=== PATIENT | male | born 1935 | race Caucasian/White ===

== ENCOUNTER 2017-01-12 22:10 | Inpatient (IN) | payer MEDICARE ==
[2017-01-12] VITALS (28 sets, daily range): O2SAT 92–97
[~2017-01-12] VITALS: Ht 185.4 cm; Wt 134.7 kg
[2017-01-13] VITALS (1164 sets, daily range): BP systolic 88–133; BP diastolic 42–59; PULSE 70–96; TEMP 97.2–98.7; O2SAT 58–100
[2017-01-13 00:41] LABS: ARTERIAL BLD GAS O2 SATURATION 93.3 % (92-100); ARTERIAL BLD GAS TCO2 CT 25.5; ARTERIAL BLOOD GAS BASE EXCESS -0.5 (-2-2); ARTERIAL BLOOD GAS HCO3 24.3 meq/L (22-26); ARTERIAL BLOOD GAS PO2 69.8 mmHg (80-100); ARTERIAL BLOOD GAS PO2T 69.8 (80-100); OXYHEMOGLOBIN 92.7 %
[2017-01-13 00:41] LABS: VENOUS BLOOD GAS BE -0.8 (-4-4); VENOUS BLOOD GAS SAO2 60.6 % (60-80)
[2017-01-13 00:42] LABS: ALLEN TEST NO; ATS? YES
[2017-01-13 00:43] LABS: VENOUS BLOOD GAS SITE VENIPUNCTURE
[2017-01-13 01:24] LABS: BASO # 0.1 (0.0-0.2); BASO % 0.3 % (0.0-2.0); EOS % 0.2 % (0-4.0); GRAN # 14.2 (1.4-6.5); GRAN % 79.1 % (42.2-75.2); LYMPH # 2.2 (1.2-3.4); LYMPH % 12.2 % (20.0-51.0); MEAN CELL VOLUME 101 fl (80.0-100.0); MEAN CORPUSCULAR HGB CONC 34 g/dl (33.0-37.0); MONO # 1.2 (0.1-0.6); MONO % 6.5 % (1.7-9.3); PLATELET COUNT 225 K/mm3 (130-400); RED BLOOD COUNT 2.66 M/mm3 (4.20-5.60); WHITE BLOOD COUNT 17.9 K/mm3 (4.8-10.8)
[2017-01-13 01:25] LABS: HEMATOCRIT 26.8 % (42.0-52.0); MEAN CORPUSCULAR HEMOGLOBIN 34 pg (27.0-31.0)
[2017-01-13 01:28] LABS: INR 1.3 (0.8-3.0); PROTHROMBIN TIME 14.6 SECONDS (9.7-12.8)
[2017-01-13 01:33] LABS: ADJUSTED CALCIUM 8.8 mg/dL (8.4-10.2); ALANINE AMINOTRANSFERASE 33 U/L (21-72); ALBUMIN 2.6 gm/dL (3.5-5.0); ALKALINE PHOSPHATASE 129 U/L (50-136); ANION GAP 5 mmol/L (7-16); BILIRUBIN,TOTAL 0.4 mg/dL (0.0-1.0); BLOOD UREA NITROGEN 46 mg/dL (9-20); CALCIUM 7.7 mg/dL (8.4-10.2); CARBON DIOXIDE 24 mmol/L (22-30); CHLORIDE 100 mmol/L (98-107); CREATININE, serum 1.96 mg/dL (0.66-1.25); GLUCOSE 253 mg/dL (74-106); SODIUM 129 mmol/L (137-145); TOTAL PROTEIN 4.7 gm/dL (6.4-8.2)
[2017-01-13 01:36] LABS: POTASSIUM 5.9 mmol/L (3.4-5.0); SALICYLATE < 1.0 mg/dL
[2017-01-13 01:45] LABS: TROPONIN-I < 0.012 ng/mL (0.000-0.034)
[2017-01-13 03:43] LABS: AMORPHOUS CRYSTAL Present /uL; MUCOUS Present /lpf; PH 5 (5-8); SQUAMOUS EPITHELIAL 0-2 /hpf; URINE APPEARANCE Turbid; URINE BACTERIA None Seen /hpf; URINE BILIRUBIN Negative (NEGATIVE); URINE BLOOD 3+ (NEGATIVE); URINE COLOR Amber; URINE GLUCOSE 1+ (NEGATIVE); URINE KETONE Trace (NEGATIVE); URINE LEUKOCYTE ESTERASE Negative (NEGATIVE); URINE PROTEIN(semi-quant) 2+ (NEGATIVE); URINE RBC >50 /hpf; URINE UROBILINOGEN Negative (NEGATIVE)
[2017-01-13 03:45] LABS: COLLECTION METHOD CATHETER
[2017-01-13] MEDS ORDERED: PRINIVIL20 MG PO (04:32)
[2017-01-13] MEDS ORDERED: PLAVIX 75MG TAB75 MG PO (04:33)
[2017-01-13] MEDS ORDERED: GLUCOPHAGE500 MG/TAB PO (04:34)
[2017-01-13] MEDS ORDERED: ZOCOR 20MG20 MG PO (04:38)
[2017-01-13] MEDS ORDERED: LOPRESSOR 550 MG/TAB PO (04:39)
[2017-01-13] MEDS ORDERED: ZEBETA 5MG5 MG PO (04:40)
[2017-01-13] MEDS ORDERED: NORCO 325 MG-51 TAB PO (04:43)
[2017-01-13] MEDS ORDERED: JANUVIA 100MG100 MG PO (04:44)
[2017-01-13] MEDS ORDERED: ZYLOPRIM 100MG100 MG PO (04:46)
[2017-01-13] MEDS ORDERED: FLOMAX 0.40.4 MG/CAP PO (04:47)
[2017-01-13] MEDS ORDERED: PROTONIX20 MG PO (04:48)
[2017-01-13] MEDS ORDERED: GLUCOTROL XL10 MG PO (04:49)
[2017-01-13] MEDS ORDERED: MULTI VITAMINS1 TAB PO (04:53)
[2017-01-13] MEDS ORDERED: ROXICODONE 55 MG/TAB (04:54)
[2017-01-13] MEDS ORDERED: ASPIRIN E.C. 8181 MG PO (04:56)
[2017-01-13] MEDS ORDERED: OMEGA-3 1000 MG1 CAP PO (04:57)
[2017-01-13] MEDS ORDERED: GLUCOSAMINE & C1 TAB PO (04:58)
[2017-01-13 05:22] LABS: VENOUS BLOOD GAS BE 0.8 (-4-4); VENOUS BLOOD GAS SAO2 56.4 % (60-80); VENOUS BLOOD GAS SITE VENIPUNCTURE
[2017-01-13 18:56] LABS: CALCIUM 6.9 mg/dL (8.4-10.2); CREATININE, serum 1.84 mg/dL (0.66-1.25); POTASSIUM 5.7 mmol/L (3.4-5.0)
[2017-01-14] VITALS (1353 sets, daily range): BP systolic 106–139; BP diastolic 32–69; PULSE 83–107; TEMP 97.9–99; O2SAT 51–100
[2017-01-14 06:03] LABS: ALLEN TEST YES; ALLENS TEST RESULT PASS; ARTERIAL BLD GAS O2 SATURATION 95.7 % (92-100); ARTERIAL BLD GAS TCO2 CT 20.7; ARTERIAL BLOOD GAS BASE EXCESS -5.8 (-2-2); ARTERIAL BLOOD GAS HCO3 19.6 meq/L (22-26); ARTERIAL BLOOD GAS PO2 91.2 mmHg (80-100); ARTERIAL BLOOD GAS pH 7.33 (7.35-7.45); ATS? YES
[2017-01-14 08:23] LABS: ADJUSTED CALCIUM 8.6 mg/dL (8.4-10.2); ALBUMIN 2.1 gm/dL (3.5-5.0); BILIRUBIN,TOTAL 0.2 mg/dL (0.0-1.0); CALCIUM 7.1 mg/dL (8.4-10.2); CREATININE, serum 1.5 mg/dL (0.66-1.25); POTASSIUM 4.9 mmol/L (3.4-5.0); TOTAL PROTEIN 4.1 gm/dL (6.4-8.2)
[2017-01-14 18:55] LABS: HEMATOCRIT 18.5 % (42.0-52.0); HEMOGLOBIN 6.1 g/dl (13.5-18.0)
[2017-01-14 19:42] LABS: INR 1.2 (0.8-3.0); PROTHROMBIN TIME 13.7 SECONDS (9.7-12.8)
[2017-01-15] VITALS (595 sets, daily range): BP systolic 125–168; BP diastolic 30–76; PULSE 73–96; TEMP 97.3–99.4; O2SAT 70–100
[2017-01-15 03:45] LABS: MEAN CELL VOLUME 101 fl (80.0-100.0); MEAN CORPUSCULAR HGB CONC 34 g/dl (33.0-37.0); MEAN PLATELET VOLUME 10.6 fl (7.4-10.4); PLATELET COUNT 182 K/mm3 (130-400); RED BLOOD COUNT 1.74 M/mm3 (4.20-5.60); WHITE BLOOD COUNT 12.4 K/mm3 (4.8-10.8)
[2017-01-15 03:46] LABS: HEMATOCRIT 17.6 % (42.0-52.0); MEAN CORPUSCULAR HEMOGLOBIN 34 pg (27.0-31.0)
[2017-01-15 03:52] LABS: CALCIUM 7.9 mg/dL (8.4-10.2); CREATININE, serum 1.24 mg/dL (0.66-1.25); INR 1.3 (0.8-3.0); POTASSIUM 5.5 mmol/L (3.4-5.0); PROTHROMBIN TIME 14.2 SECONDS (9.7-12.8)
[2017-01-15 03:54] LABS: ALLEN TEST YES; ALLENS TEST RESULT PASS; ARTERIAL BLD GAS O2 SATURATION 96.4 % (92-100); ARTERIAL BLD GAS TCO2 CT 20.8; ARTERIAL BLOOD GAS BASE EXCESS -4.6 (-2-2); ARTERIAL BLOOD GAS HCO3 19.8 meq/L (22-26); ARTERIAL BLOOD GAS PO2 96.4 mmHg (80-100); ATS? YES; OXYHEMOGLOBIN 95.2 %
[2017-01-15 03:55] LABS: HEMOGLOBIN 5.9 g/dl (13.5-18.0)
[2017-01-15 11:25] LABS: HEMATOCRIT 22.5 % (42.0-52.0); HEMOGLOBIN 7.5 g/dl (13.5-18.0)
[2017-01-15 18:38] LABS: HEMATOCRIT 25.1 % (42.0-52.0); HEMOGLOBIN 8.3 g/dl (13.5-18.0)
[2017-01-16] VITALS (8 sets, daily range): BP systolic 110–140; BP diastolic 42–79; PULSE 64–96; TEMP 97.4–98.7
[2017-01-16 14:43] LABS: BASO # 0.1 (0.0-0.2); BASO % 0.6 % (0.0-2.0); EOS # 0.3 (0.0-0.7); EOS % 2.9 % (0-4.0); GRAN # 5.8 (1.4-6.5); GRAN % 55.7 % (42.2-75.2); LYMPH # 2.8 (1.2-3.4); LYMPH % 27.4 % (20.0-51.0); MEAN CELL VOLUME 100 fl (80.0-100.0); MEAN CORPUSCULAR HGB CONC 33 g/dl (33.0-37.0); MEAN PLATELET VOLUME 10.6 fl (7.4-10.4); MONO # 1.2 (0.1-0.6); MONO % 11.2 % (1.7-9.3); PLATELET COUNT 184 K/mm3 (130-400); RED BLOOD COUNT 2.37 M/mm3 (4.20-5.60); WHITE BLOOD COUNT 10.3 K/mm3 (4.8-10.8)
[2017-01-16 14:46] LABS: HEMATOCRIT 23.7 % (42.0-52.0); HEMOGLOBIN 7.8 g/dl (13.5-18.0); MEAN CORPUSCULAR HEMOGLOBIN 33 pg (27.0-31.0)
[2017-01-16 14:49] LABS: CALCIUM 8.5 mg/dL (8.4-10.2); CREATININE, serum 1.16 mg/dL (0.66-1.25); MAGNESIUM 1.7 mg/dL (1.6-2.3); POTASSIUM 5.3 mmol/L (3.4-5.0)
[2017-01-17 03:02] VITALS: BP 146/58; PULSE 90; TEMP 98.3
[2017-01-17 07:26] LABS: BASO # 0.1 (0.0-0.2); BASO % 0.5 % (0.0-2.0); EOS # 0.3 (0.0-0.7); EOS % 2.6 % (0-4.0); GRAN # 7.2 (1.4-6.5); GRAN % 62.7 % (42.2-75.2); HEMATOCRIT 22.9 % (42.0-52.0); HEMOGLOBIN 7.5 g/dl (13.5-18.0); LYMPH # 2.4 (1.2-3.4); MEAN CELL VOLUME 100 fl (80.0-100.0); MEAN CORPUSCULAR HEMOGLOBIN 33 pg (27.0-31.0); MEAN CORPUSCULAR HGB CONC 33 g/dl (33.0-37.0); MEAN PLATELET VOLUME 11.2 fl (7.4-10.4); MONO # 1.1 (0.1-0.6); PLATELET COUNT 187 K/mm3 (130-400); RED BLOOD COUNT 2.28 M/mm3 (4.20-5.60); WHITE BLOOD COUNT 11.4 K/mm3 (4.8-10.8)
[2017-01-17 07:56] LABS: CALCIUM 8.6 mg/dL (8.4-10.2); CREATININE, serum 1.15 mg/dL (0.66-1.25); MAGNESIUM 1.6 mg/dL (1.6-2.3); POTASSIUM 5.2 mmol/L (3.4-5.0)
[2017-01-17 08:16] VITALS: BP 121/54; PULSE 93; TEMP 97.5
[2017-01-17 12:08] VITALS: BP 128/54; PULSE 103; TEMP 97.4
[2017-01-17 15:41] VITALS: BP 139/56; PULSE 98; TEMP 97.5
[2017-01-17 20:20] VITALS: BP 141/59; PULSE 101; TEMP 99
[2017-01-18 03:55] VITALS: BP 133/52; PULSE 95; TEMP 97.6
[2017-01-18 08:09] VITALS: BP 106/72; PULSE 77; TEMP 97.8
[2017-01-18 09:26] LABS: MEAN CELL VOLUME 101 fl (80.0-100.0); MEAN CORPUSCULAR HGB CONC 33 g/dl (33.0-37.0); MEAN PLATELET VOLUME 11.3 fl (7.4-10.4); PLATELET COUNT 207 K/mm3 (130-400); RED BLOOD COUNT 2.32 M/mm3 (4.20-5.60); WHITE BLOOD COUNT 11.7 K/mm3 (4.8-10.8)
[2017-01-18 09:31] LABS: HEMATOCRIT 23.4 % (42.0-52.0); HEMOGLOBIN 7.6 g/dl (13.5-18.0); MEAN CORPUSCULAR HEMOGLOBIN 33 pg (27.0-31.0)
[2017-01-18 09:32] LABS: ADD PATHOLOGY DIFF REVIEW NO
[2017-01-18 09:33] LABS: CALCIUM 8.9 mg/dL (8.4-10.2); CREATININE, serum 1.04 mg/dL (0.66-1.25); MAGNESIUM 1.7 mg/dL (1.6-2.3); POTASSIUM 4.9 mmol/L (3.4-5.0)
[2017-01-18 10:26] LABS: BAND 5 % (0-10); BASOPHIL 1 % (0-2); EOSINOPHIL 4 % (0-4); LYMPHOCYTE 22 % (20.0-51.0); NEUTROPHILS 63 % (42.0-75.2); PLATELET ESTIMATE NORMAL (NORMAL); TOTAL CELLS COUNTED 100
[2017-01-18 12:43] VITALS: BP 136/55; PULSE 70; TEMP 97.6
[2017-01-18] MEDS ORDERED: PROTONIX 40MG T40 MG PO (15:37)
[2017-01-18] MEDS ORDERED: FERROUS SU325 MG/TAB PO (15:37)
[2017-01-18] MEDS ORDERED: DOXYCYCLINE 10100 MG PO (15:37)
[2017-01-18] MEDS ORDERED: ZESTRIL 5MG5 MG PO (15:37)
[2017-01-18] MEDS ORDERED: FOLIC ACID 11 MG/TA1 PO (15:37)
[2017-01-18] MEDS ORDERED: CARAFATE 1GM1 G PO (15:37)
[2017-01-18] MEDS ORDERED: B-121000 MCG PO (15:37)
== END 2017-01-18 17:45 | disposition home or self-care (01) | DRG 871 ==
LOC: ICU 22:10 → MEDICAL 23:26 → ICU 23:26 → MEDICAL 01-15 18:30
PROVIDERS: Family Medicine; Internal Medicine Gastroenterology; Nurse Practitioner; Physician Assistant
PROC: 0DB68ZX Excision of Stomach, Via Natural or Artificial Opening Endoscopic, Diagnostic (ICD-10-PCS; 2017-01-15)
PROC: 0DB98ZX Excision of Duodenum, Via Natural or Artificial Opening Endoscopic, Diagnostic (ICD-10-PCS; principal; 2017-01-15 12:00)
DX: A41.9 Sepsis, unspecified organism (principal); J18.9 Pneumonia, unspecified organism; K26.0 Acute duodenal ulcer with hemorrhage; N17.9 Acute kidney failure, unspecified; N39.0 Urinary tract infection, site not specified; D62 Acute posthemorrhagic anemia; E87.1 Hypo-osmolality and hyponatremia; E87.2 Acidosis; E87.5 Hyperkalemia; I10 Essential (primary) hypertension; E11.9 Type 2 diabetes mellitus without complications; Z95.1 Presence of aortocoronary bypass graft
CPT/HCPCS: 99223-AI; 99232-AI; 99233-AI; 99239; A9284; C1751; J0456; J0696; J1644; J1815; J2405; J2543; J2704; J3370; J3475; J7030; J7050; J7060; P9016